=== PATIENT | female | born 1970 | race Caucasian/White ===

== ENCOUNTER → 2018-04-21 | Outpatient (CLI) | payer OTHER ==
--- NOTE | 2018-04-22 18:56 | Diagnostic Imaging Report ---
INDICATION: Digital mammogram bilateral screening with 3-D tomosynthesis. This study was compared to the prior exam of 12/29/13. At this time, there are no current complaints. The current study was also evaluated with a Computer Aided Detection (CAD) system. FINDINGS: There are scattered fibroglandular densities in both breasts which could obscure a lesion. Overall, there does not appear to have been any significant change when compared to the prior exam. No primary or secondary sign of malignancy is noted. 3D tomographic images fail to show any sign of malignancy. IMPRESSION: 1. There is no evidence of malignancy. 2. The patient should have her annual bilateral screening mammogram on schedule in April of 2019. ACR BI-RADS Category 1: Negative. Result letter will be mailed to the patient. Note: At least 10% of breast cancer is not imaged by mammography. Dictated by: Dictated on workstation # [id number]
== END ==
LOC: RAD 15:09
PROVIDERS: ATTEND Family Medicine
DX: Z12.31 Encounter for screening mammogram for malignant neoplasm of breast (principal)
CPT/HCPCS: 77067

== ENCOUNTER → 2019-05-02 | Outpatient (CLI) | payer OTHER ==
--- NOTE | 2019-05-02 14:15 | Diagnostic Imaging Report ---
PROCEDURE: US Thyroid. TECHNIQUE: Multiple Real-time grayscale images were obtained of the thyroid in various projections. INDICATION: Goiter. COMPARISON: 08/29/2016. FINDINGS: The right lobe of the thyroid measures 5.7 x 3.5 x 2.3 cm and the left lobe measures 5.3 x 2.9 x 2.6 cm. Both lobes again demonstrate marked parenchymal heterogeneity. There may be a nodule in the upper pole of the right lobe measuring approximately 15 mm in size. No other masses are seen. IMPRESSION: Marked parenchymal heterogeneity, consistent with a goiter. There is a 15 mm nodule in the upper pole without microcalcifications. Followup to confirm stability is recommended. Dictated by: Dictated on workstation # [id number]
== END ==
LOC: RAD 11:59
PROVIDERS: ATTEND Family Medicine
DX: E04.1 Nontoxic single thyroid nodule (principal)
CPT/HCPCS: 76536

== ENCOUNTER → 2020-04-17 | Outpatient (CLI) | payer OTHER ==
--- NOTE | 2020-04-17 17:05 | Diagnostic Imaging Report ---
PROCEDURE: US Thyroid. TECHNIQUE: Multiple real-time grayscale images were obtained of the thyroid in various projections. INDICATION: Goiter. FINDINGS: The prior thyroid ultrasound exam performed on 05/02/2019 noted generalized enlargement of both lobes of the thyroid with marked parenchymal heterogeneity. There was also a 15 mm nodule in the superior pole of the right lobe. On this exam, the thyroid gland remains enlarged. The right lobe measures 6.9 x 3.0 x 3.2 cm while the left lobe is estimated to be 6.1 x 3.2 x 2.8 cm (normal gland size 4-5 x 2 x 2 cm or less). The 15 mm nodule in the superior pole of the right lobe of the thyroid seen previously is again evident. This finding does seem to measure larger and is now estimated to be 22 mm in maximum dimension; however, I am not certain that this is a discrete nodule. This may merely be part of the suspected goiter. If further imaging is desired, then a nuclear medicine thyroid scan would be recommended. If the nuclear medicine study is not performed, then a short-term (6 month) follow-up thyroid ultrasound exam should be obtained. IMPRESSION: 1. The thyroid gland is enlarged and there is still generalized heterogeneity throughout both lobes. 2. The nodule along the superior pole of the right lobe reported on the prior exam may merely be part of the goiter as opposed to a discrete nodule. Additional considerations and recommendations as above. Dictated by: Dictated on workstation # [id number]
== END ==
LOC: RAD 13:36
PROVIDERS: ATTEND Family Medicine
DX: E01.0 Iodine-deficiency related diffuse (endemic) goiter (principal)
CPT/HCPCS: 76536

== ENCOUNTER → 2020-09-27 | Outpatient (CLI) | payer OTHER ==
--- NOTE | 2020-09-28 09:33 | NUR ---
Notified of positive COVID test.
== END ==
LOC: LABNPT 05:43
PROVIDERS: ATTEND Family Medicine
DX: U07.1 COVID-19 (principal)
CPT/HCPCS: 87635

== ENCOUNTER → 2023-07-17 | Outpatient (CLI) | payer OTHER ==
--- NOTE | 2023-07-17 13:38 | Diagnostic Imaging Report ---
Indication: Routine screening. Comparison is made with prior mammogram from 04/21/2018. 2-D and 3-D bilateral screening mammography was performed with CAD. Scattered fibroglandular densities are identified bilaterally. The parenchymal pattern is stable. No mass or malignant-appearing microcalcifications are seen. Axillae are unremarkable. IMPRESSION: BI-RADS Category 1. No mammographic features suspicious for malignancy are identified. ACR BI-RADS Category 1: Negative. Result letter will be mailed to the patient. Note: At least 10% of breast cancer is not imaged by mammography. Dictated by: Dictated on workstation # [id number]
== END ==
LOC: RAD 09:08
PROVIDERS: ATTEND Nurse Practitioner Family
DX: Z12.31 Encounter for screening mammogram for malignant neoplasm of breast (principal)
CPT/HCPCS: 77063; 77067